=== PATIENT | male | born 1955 | race Hispanic/Latino ===

== ENCOUNTER 2017-07-06 09:24 | Day surgery (SDC) | payer OTHER ==
[2017-07-06 09:54] VITALS: BMI 31.3
[2017-07-06] MEDS ORDERED: Lactated Ringer's 500 ML IV ONE (12:15)
[2017-07-06] MEDS ORDERED: Propofol 10 mg/ml Inj (20 ML) ONE ×2 (12:17→12:40)
[2017-07-06 14:48] VITALS: BP 138/94; PULSE 74; RESP 23; TEMP 97.4; O2SAT 98
== END 2017-07-06 14:15 | disposition home or self-care (01) ==
LOC: C.ENDO 09:24
PROVIDERS: ATTEND Internal Medicine Gastroenterology
DX: K57.90 Diverticulosis of intestine, part unspecified, without perforation or abscess without bleeding (principal); K64.8 Other hemorrhoids; D12.5 Benign neoplasm of sigmoid colon; D12.3 Benign neoplasm of transverse colon
CPT/HCPCS: 45380; 88305; J2405; J2704; J2765; J7120